=== PATIENT | female | born 1955 | race Caucasian/White ===

== ENCOUNTER → 2018-06-16 | Outpatient (CLI) | payer BC ==
--- NOTE | 2018-06-18 08:52 | MM ---
Reason for exam: screening (asymptomatic). Last mammogram was performed 3 years and 10 months ago. History: Patient is postmenopausal. Family history of breast cancer in mother. Took hormonal contraceptives for 30 years. Physical Findings: A clinical breast exam by your physician is recommended on an annual basis and results should be correlated with mammographic findings. MG 3D Screening Mammo W/Cad Bilateral CC and MLO view(s) were taken. Prior study comparison: August 04, 2014, right breast MG work up mamm w CAD RT. July 15, 2014, bilateral MG screening mammo w CAD. The breast tissue is heterogeneously dense. This may lower the sensitivity of mammography. No significant changes when compared with prior studies. ASSESSMENT: Negative, BI-RAD 1 RECOMMENDATION: Routine screening mammogram of both breasts in 1 year.
== END | disposition home or self-care (01) ==
LOC: RADMAMWWP 13:36
PROVIDERS: ATTEND Family Medicine
DX: Z12.31 Encounter for screening mammogram for malignant neoplasm of breast (principal); Z80.3 Family history of malignant neoplasm of breast
CPT/HCPCS: 77063; 77067

== ENCOUNTER 2018-10-11 13:48 | Inpatient (IN) | payer BC ==
[2018-10-11] MEDS ORDERED: ASPIRIN 81 MG PO STA (13:51)
[2018-10-11] MEDS ORDERED: NITROGLYCERIN OINT 1 INCH/GM PACKET TOPICAL STA (14:17)
--- NOTE | 2018-10-11 14:20 | ED ---
General Adult HPI - General Chief complaint: Chest Pain Stated complaint: Chest Pressure, High BP Time Seen by Provider: 10/11/18 13:51 Source: patient, RN notes reviewed Mode of arrival: ambulatory Limitations: no limitations - History of Present Illness Initial comments: Patient is a pleasant 63-year-old female presenting to the emergency department after being seen in the clinic. Patient woke up this morning with discomfort in her chest that was somewhat severe. Patient had associated nausea. Discomfort has improved is currently 4/10. Discomfort feels like pressure. There was some radiation to the neck earlier. No associated dyspnea or diaphoresis. Patient did have last cardiac workup around 1 year ago. Patient's blood pressure was hi this morning at approximately 2:30 systolic. Blood pressure was somewhat improved in the clinic prior to arrival. Patient has had recent change in blood pressure medications. Last blood pressure medication was Norvasc 5 mg taken last night. Patient does also feel stressed and is in the process of taking one of her Xanax. - Related Data Home Medications Medication Instructions Recorded Confirmed Atorvastatin [Lipitor] 20 mg PO MOWEFR 10/11/18 10/11/18 Dicyclomine [Bentyl] 10 mg PO TID 10/11/18 10/11/18 Levothyroxine Sodium [Synthroid] 88 mcg PO DAILY 10/11/18 10/11/18 Loratadine [Claritin] 10 mg PO DAILY 10/11/18 10/11/18 Montelukast Sodium [Singulair] 10 mg PO HS 10/11/18 10/11/18 amLODIPine [Norvasc] 5 mg PO HS 10/11/18 10/11/18 Allergies Allergy/AdvReac Type Severity Reaction Status Date / Time No Known Allergies Allergy Verified 10/11/18 14:18 Review of Systems ROS Statement: Those systems with pertinent positive or pertinent negative responses have been documented in the HPI. ROS Other: All systems not noted in ROS Statement are negative. Constitutional: Denies: fever Eyes: Denies: eye pain ENT: Denies: ear pain Respiratory: Denies: cough, dyspnea Cardiovascular: Reports: chest pain Endocrine: Denies: fatigue Gastrointestinal: Reports: nausea. Denies: abdominal pain Genitourinary: Denies: dysuria Musculoskeletal: Denies: back pain Skin: Denies: rash Neurological: Denies: weakness Past Medical History Past Medical History: Asthma, Hyperlipidemia, Hypertension, Thyroid Disorder History of Any Multi-Drug Resistant Organisms: None Reported Past Surgical History: Hysterectomy, Tonsillectomy Past Psychological History: No Psychological Hx Reported Smoking Status: Current every day smoker Past Alcohol Use History: Occasional Past Drug Use History: None Reported General Exam Limitations: no limitations General appearance: alert, in no apparent distress Head exam: Present: atraumatic Eye exam: Present: normal appearance, PERRL ENT exam: Present: normal oropharynx Neck exam: Present: normal inspection Respiratory exam: Present: normal lung sounds bilaterally. Absent: chest wall tenderness Cardiovascular Exam: Present: regular rate, normal rhythm Expanded Peripheral pulses: 2+: Radial (R), Radial (L), Posterior Tibialis (R), Posterior Tibialis (L) GI/Abdominal exam: Present: soft. Absent: distended, tenderness Extremities exam: Present: normal inspection. Absent: pedal edema, calf tenderness Neurological exam: Present: alert Psychiatric exam: Present: normal affect, normal mood Skin exam: Present: normal color Course Vital Signs 10/11/18 13:51 Temperature 99 F Pulse Rate 105 H Respiratory 20 Rate Blood Pressure 154/94 O2 Sat by Pulse 97 Oximetry EKG Findings - EKG Comments: EKG Findings:: Normal sinus rhythm and 96. ND 140. QRS 70. QT is a 48. QTC 439. Normal axis. Normal QRS. Nonspecific ST-T. Medical Decision Making - Medical Decision Making Patient reevaluated and resting comfortably in bed. Discomfort only mild at this point. Patient and family updated on results and plan. Case was discussed in detail with Dr. Alvarez, who will admit covering for [facility]. - Lab Data Result diagrams: 10/11/18 14:28 10/11/18 14:28 Lab Results 10/11/18 10/11/18 10/11/18 Range/Units 14:28 14:28 14:28 WBC 6.7 (3.8-10.6) k/uL RBC 5.50 H (3.80-5.40) m/uL Hgb 16.3 H (11.4-16.0) gm/dL Hct 48.6 H (34.0-46.0) % MCV 88.5 (80.0-100.0) fL MCH 29.7 (25.0-35.0) pg MCHC 33.6 (31.0-37.0) g/dL RDW 13.4 (11.5-15.5) % Plt Count 349 (150-450) k/uL Neutrophils % 59 % Lymphocytes % 31 % Monocytes % 5 % Eosinophils % 2 % Basophils % 1 % Neutrophils # 4.0 (1.3-7.7) k/uL Lymphocytes # 2.1 (1.0-4.8) k/uL Monocytes # 0.3 (0-1.0) k/uL Eosinophils # 0.2 (0-0.7) k/uL Basophils # 0.1 (0-0.2) k/uL PT 9.8 (9.0-12.0) sec INR 0.9 (<1.2) APTT 24.8 (22.0-30.0) sec D-Dimer 0.50 (<0.60) mg/L FEU Sodium 137 (137-145) mmol/L Potassium 3.6 (3.5-5.1) mmol/L Chloride 104 (98-107) mmol/L Carbon Dioxide 25 (22-30) mmol/L Anion Gap 8 mmol/L BUN 13 (7-17) mg/dL Creatinine 0.81 (0.52-1.04) mg/dL Est GFR (CKD-EPI)AfAm 89 (>60 ml/min/1.73 sqM) Est GFR (CKD-EPI)NonAf 78 (>60 ml/min/1.73 sqM) Glucose 147 H (74-99) mg/dL Calcium 9.6 (8.4-10.2) mg/dL Magnesium 1.7 (1.6-2.3) mg/dL Total Bilirubin 0.6 (0.2-1.3) mg/dL AST 21 (14-36) U/L ALT 19 (9-52) U/L Alkaline Phosphatase 68 (38-126) U/L Creatine Kinase 143 H (30-135) U/L Troponin I (0.000-0.034) ng/mL Total Protein 6.9 (6.3-8.2) g/dL Albumin 4.5 (3.5-5.0) g/dL 10/11/18 Range/Units 14:28 WBC (3.8-10.6) k/uL RBC (3.80-5.40) m/uL Hgb (11.4-16.0) gm/dL Hct (34.0-46.0) % MCV (80.0-100.0) fL MCH (25.0-35.0) pg MCHC (31.0-37.0) g/dL RDW (11.5-15.5) % Plt Count (150-450) k/uL Neutrophils % % Lymphocytes % % Monocytes % % Eosinophils % % Basophils % % Neutrophils # (1.3-7.7) k/uL Lymphocytes # (1.0-4.8) k/uL Monocytes # (0-1.0) k/uL Eosinophils # (0-0.7) k/uL Basophils # (0-0.2) k/uL PT (9.0-12.0) sec INR (<1.2) APTT (22.0-30.0) sec D-Dimer (<0.60) mg/L FEU Sodium (137-145) mmol/L Potassium (3.5-5.1) mmol/L Chloride (98-107) mmol/L Carbon Dioxide (22-30) mmol/L Anion Gap mmol/L BUN (7-17) mg/dL Creatinine (0.52-1.04) mg/dL Est GFR (CKD-EPI)AfAm (>60 ml/min/1.73 sqM) Est GFR (CKD-EPI)NonAf (>60 ml/min/1.73 sqM) Glucose (74-99) mg/dL Calcium (8.4-10.2) mg/dL Magnesium (1.6-2.3) mg/dL Total Bilirubin (0.2-1.3) mg/dL AST (14-36) U/L ALT (9-52) U/L Alkaline Phosphatase (38-126) U/L Creatine Kinase (30-135) U/L Troponin I <0.012 (0.000-0.034) ng/mL Total Protein (6.3-8.2) g/dL Albumin (3.5-5.0) g/dL - Radiology Data Radiology results: image reviewed (Chest x-ray reveals no acute process) Disposition Clinical Impression: Chest pain Disposition: ADMITTED IP TO THIS HOSP Is patient prescribed a controlled substance at d/c from ED?: No Referrals: Juana Russell DO [Primary Care Provider] - 1-2 days Decision Time: 16:33
--- NOTE | 2018-10-11 14:41 | XR ---
EXAMINATION TYPE: XR chest 2V DATE OF EXAM: 10/11/2018 COMPARISON: NONE HISTORY: Chest pain. TECHNIQUE: Frontal and lateral views of the chest are obtained. FINDINGS: There is chronic parenchymal change with mild to moderate biapical pleural/parenchymal scar ring. Overlying EKG leads are seen. There is no focal air space opacity, pleural effusion, or pneumot horax seen. The cardiac silhouette size is within normal limits. The osseous structures are intact . IMPRESSION: Chronic changes without acute pulmonary process.
[2018-10-11 14:49] LABS: Basophils # (A) 0.1 k/uL (0-0.2); Basophils % (A) 1 %; Eosinophils # (A) 0.2 k/uL (0-0.7); Eosinophils % (A) 2 %; HCT 48.6 % (34.0-46.0); HGB 16.3 gm/dL (11.4-16.0); Lymphocytes # (A) 2.1 k/uL (1.0-4.8); Lymphocytes % (A) 31 %; MCH 29.7 pg (25.0-35.0); MCHC 33.6 g/dL (31.0-37.0); MCV 88.5 fL (80.0-100.0); Monocytes # (A) 0.3 k/uL (0-1.0); Monocytes % (A) 5 %; Neutrophils % (A) 59 %; Platelet Count 349 k/uL (150-450); RDW 13.4 % (11.5-15.5); WBC 6.7 k/uL (3.8-10.6)
[2018-10-11 14:57] LABS: Albumin 4.5 g/dL (3.5-5.0); Calcium 9.6 mg/dL (8.4-10.2); Magnesium 1.7 mg/dL (1.6-2.3); Potassium 3.6 mmol/L (3.5-5.1); Total Bilirubin 0.6 mg/dL (0.2-1.3); Total Protein 6.9 g/dL (6.3-8.2)
[2018-10-11 15:00] LABS: D-Dimer 0.5 mg/L FEU (<0.60); INR 0.9 (<1.2); Partial Thromboplastin Time 24.8 sec (22.0-30.0); Prothrombin Time 9.8 sec (9.0-12.0)
[2018-10-11] MEDS ORDERED: MORPHINE SULFATE 2 MG/ML SYRINGE IVP STA (16:32)
[2018-10-11] MEDS ORDERED: NITROGLYCERIN SL TABS 0.4 MG TAB SUBLINGUAL PRN (16:33)
[2018-10-11] MEDS ORDERED: MONTELUKAST 10 MG TAB PO SCH (21:00)
[2018-10-11] MEDS ORDERED: ATORVASTATIN 20 MG TAB PO SCH (21:00)
[2018-10-11] MEDS ORDERED: amLODIPine 5 MG TAB PO SCH (21:00)
[2018-10-11] MEDS: DICYCLOMINE 10 MG CAP PO SCH (22:23)
[2018-10-11] MEDS: NITROGLYCERIN OINT 1 INCH/GM PACKET TOPICAL SCH (22:31)
[2018-10-12 01:58] LABS: Cholesterol 225 mg/dL (<200); HDL Cholesterol 60 mg/dL (40-60); LDL Cholesterol,Calculated 131 mg/dL (0-99); Triglycerides 169 mg/dL (<150)
[2018-10-12] MEDS: NITROGLYCERIN OINT 1 INCH/GM PACKET TOPICAL SCH ×3 (02:13→11:27)
[2018-10-12] MEDS ORDERED: LEVOTHYROXINE 88 MCG TAB PO SCH (06:30)
[2018-10-12 07:47] VITALS: PULSE 64; RESP 18; TEMP 98.3
[2018-10-12 08:55] LABS: Basophils # (A) 0.1 k/uL (0-0.2); Basophils % (A) 1 %; Eosinophils # (A) 0.2 k/uL (0-0.7); Eosinophils % (A) 4 %; HGB 14.4 gm/dL (11.4-16.0); Lymphocytes # (A) 2.2 k/uL (1.0-4.8); Lymphocytes % (A) 37 %; MCH 29.5 pg (25.0-35.0); MCHC 32.8 g/dL (31.0-37.0); MCV 89.9 fL (80.0-100.0); Mean Platelet Volume 7.2; Monocytes # (A) 0.3 k/uL (0-1.0); Monocytes % (A) 5 %; Neutrophils % (A) 52 %; Platelet Count 288 k/uL (150-450); RBC 4.89 m/uL (3.80-5.40); RDW 13.6 % (11.5-15.5); WBC 5.9 k/uL (3.8-10.6)
[2018-10-12] MEDS ORDERED: LORATADINE 10 MG TAB PO SCH (09:00)
[2018-10-12] MEDS ORDERED: ASPIRIN 325 MG TAB PO SCH (09:00)
[2018-10-12 09:10] LABS: ALT 24 U/L (9-52); AST 16 U/L (14-36); Albumin 3.7 g/dL (3.5-5.0); Alkaline Phosphatase 59 U/L (38-126); Anion Gap 6 mmol/L; Blood Urea Nitrogen 17 mg/dL (7-17); Calcium 9.1 mg/dL (8.4-10.2); Carbon Dioxide 26 mmol/L (22-30); Chloride 107 mmol/L (98-107); Glucose 110 mg/dL (74-99); Sodium 139 mmol/L (137-145); Total Bilirubin 0.6 mg/dL (0.2-1.3)
[2018-10-12] MEDS ORDERED: ALPRAZolam 0.5 MG TAB PO PRN (09:14)
[2018-10-12] MEDS ORDERED: ALPRAZolam 0.25 MG TAB PO PRN (09:14)
[2018-10-12] MEDS ORDERED: SODIUM CHLORIDE 0.9% 1,000 ML in EMPTY BAG 1 BAG IV ONE (09:14)
[2018-10-12] MEDS ORDERED: ATORVASTATIN 80 MG TAB PO STA (09:14)
[2018-10-12] MEDS: DICYCLOMINE 10 MG CAP PO SCH (09:36)
--- NOTE | 2018-10-12 09:59 | P.HPIM ---
History of Present Illness H&P Date: 10/12/18 This is a 63-year-old female patient of Dr. Russell. Patient presented to the ER with complaints of chest pain. Patient reports that she woke up around 7:30 yesterday morning with pain to neck and jaw. Patient also reports that she took her blood pressure was 230s. Patient also reports that this time she was nauseated. Patient does have past medical history of asthma, hyperlipidemia, hypertension, thyroid disorder and nicotine dependence. Patient reports she's had a smoking history of 52+ years 1 pack per day. Chest x-ray completed showing chronic changes without acute pulmonary process. EKG completed showing normal sinus rhythm, nonspecific ST and T-wave abnormality. Abnormal EKG. D- dimer 0.50. Cardiology services have been consulted. At this time planning heart catheterization today. At this time patient denies chest pain or shortness of breath. Patient denies nausea vomiting or diarrhea. Patient denies any urinary burning or frequency. Review of Systems please refer to HPI otherwise unremarkable Past Medical History Past Medical History: Asthma, Hyperlipidemia, Hypertension, Thyroid Disorder History of Any Multi-Drug Resistant Organisms: None Reported Past Surgical History: Hysterectomy, Tonsillectomy Past Anesthesia/Blood Transfusion Reactions: No Reported Reaction Past Psychological History: No Psychological Hx Reported Smoking Status: Current every day smoker Past Alcohol Use History: Occasional Past Drug Use History: None Reported Medications and Allergies Home Medications Medication Instructions Recorded Confirmed Type Atorvastatin [Lipitor] 20 mg PO MOWEFR 10/11/18 10/11/18 History Dicyclomine [Bentyl] 10 mg PO TID 10/11/18 10/11/18 History Levothyroxine Sodium [Synthroid] 88 mcg PO DAILY 10/11/18 10/11/18 History Loratadine [Claritin] 10 mg PO DAILY 10/11/18 10/11/18 History Montelukast Sodium [Singulair] 10 mg PO HS 10/11/18 10/11/18 History amLODIPine [Norvasc] 5 mg PO HS 10/11/18 10/11/18 History Allergies Allergy/AdvReac Type Severity Reaction Status Date / Time No Known Allergies Allergy Verified 10/11/18 14:18 Physical Exam Vitals: Vital Signs Temp Pulse Pulse Resp BP BP Pulse Ox 10/12/18 08:00 18 10/12/18 07:47 98.3 F 64 18 143/91 96 04/02/19 07:26 98 10/12/18 04:00 97.8 F 67 16 118/48 98 10/12/18 03:20 16 10/12/18 00:41 98.3 F 71 16 136/62 95 10/12/18 00:13 98.9 F 74 18 156/94 95 10/12/18 00:00 71 16 10/11/18 22:00 79 20 134/90 99 10/11/18 18:37 85 18 123/84 99 10/11/18 16:40 81 19 136/92 96 10/11/18 13:51 99 F 105 H 20 154/94 97 Intake and Output 10/11/18 10/12/18 10/12/18 22:59 06:59 14:59 Intake Total 180 Balance 180 Intake: Amount of Fluid Infused ( 30 ml) Oral 150 Other: Voiding Method Toilet # Voids 1 Head normocephalic Neck supple Lungs clear to auscultation bilaterally no wheezing or crackles Heart regular rate and rhythm S1-S2, no rub or gallop Abdomen is soft nontender nondistended positive bowel sounds no hep atosplenomegaly Extremities no edema Neuro alert and orientated to 3 Results CBC & Chem 7: 10/12/18 08:36 10/12/18 08:36 Labs: Abnormal Lab Results - Last 24 Hours (Table) 10/11/18 10/11/18 10/11/18 Range/Units 14:28 14:28 14:28 RBC 5.50 H (3.80-5.40) m/uL Hgb 16.3 H (11.4-16.0) gm/dL Hct 48.6 H (34.0-46.0) % Glucose 147 H (74-99) mg/dL Creatine Kinase 143 H (30-135) U/L Total Protein (6.3-8.2) g/dL Triglycerides 169 H (<150) mg/dL Cholesterol 225 H (<200) mg/dL LDL Cholesterol, Calc 131 H (0-99) mg/dL 10/12/18 Range/Units 08:36 RBC (3.80-5.40) m/uL Hgb (11.4-16.0) gm/dL Hct (34.0-46.0) % Glucose 110 H (74-99) mg/dL Creatine Kinase (30-135) U/L Total Protein 6.0 L (6.3-8.2) g/dL Triglycerides (<150) mg/dL Cholesterol (<200) mg/dL LDL Cholesterol, Calc (0-99) mg/dL Thrombosis Risk Factor Assmnt - Choose All That Apply Any of the Below Risk Factors Present?: Yes Each Factor Represents 1 point: Varicose veins Other Risk Factors: Yes Each Risk Factor Represents 2 Points: Age 61-74 years Other congenital or acquired thrombophilia - If yes, enter type in comment: No Thrombosis Risk Factor Assessment Total Risk Factor Score: 3 Thrombosis Risk Factor Assessment Level: Moderate Risk Assessment and Plan Assessment: 1. Chest pain. Troponins negative 3. EKG completed showing normal sinus rhythm, nonspecific ST and T-wave abnormality. Abnormal EKG. Chest x-ray completed showing chronic changes without acute pulmonary process. Cardiology services following. Planning a heart catheterization today. 2. Nicotine dependence. Patient educated greater than 3 minutes on smoking cessation. Nicotine patch ordered 3. History of asthma. No exacerbation at this time 4. History of hyperlipidemia. 5. History of essential hypertension 6. Hypothyroidism Time with Patient: Greater than 30 (Greater than 60% of the total time spent in counseling and coordination of care. I performed an examination of the patient and discussed their management with the Nurse Practitioner. I have reviewed the Nurse Practitioner's notes and agree with the documented findings and plan of care)
--- NOTE | 2018-10-12 10:00 | P.CRDCN ---
History of Present Illness History of present illness: This is a pleasant 63 female past medical history significant for hypertension, dyslipidemia, diabetes mellitus recently stopped her oral medications secondary to controlled A1c, chronic nicotine dependence and significant family history of premature coronary artery disease with her father dying from a heart attack in his early 60s. She states she underwent a cardiac evaluation by her primary care physician approximately one year ago with a stress test which was normal. 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 She states yesterday morning around 7 AM she woke up with a heavy pressure sensation in the left precordial region that was radiating to the left shoulder, up her neck on the left side as well as at the base of her neck and also she was having a significant headache. She checked her blood pressure home it was over 200 systolic. She also had associated nausea with this pain. She denies shortness of breath, dizziness, vomiting, diaphoresis or palpitations. She states she went to her primary care physician performed an EKG and sent her to the hospital for further evaluation. She states in the recent months she has been struggling with getting her blood pressure under control. She has tried multiple medications. She had been on losartan previously but requested to stop that medication secondary to things that she was reading on [facility]. She is currently maintained on amlodipine 5 mg daily. At the time of my exam initially she is seen sitting in bed in no acute distress. However further course of my examination she got up to use the restroom and while walking to the restroom she had another episode of chest discomfort with radiation to the left shoulder and neck. This pain is not reproducible on palpation and is not associated with deep inspiration. EKG reveals sinus mechanism with upsloping ST depression in the inferior leads and horizontal ST depression laterally. Chest x-ray is negative for an acute cardiopulmonary process. Laboratory data reviewed, cardiac enzymes negative 3, LDL 131, creatinine 0.78 with a GFR of 81. Current cardiac medications include atorvastatin 20 mg Thursday and Thursday and amlodipine 5 mg daily. At the time of my exam: CONSTITUTIONAL: Denies fever. Denies chills. EYES: Denies blurred vision. Denies vision changes. Denies eye pain. EARS, NOSE, MOUTH & THROAT: Denies headache. Denies sore throat. Denies ear pain. CARDIOVASCULAR: Complains of chest pain. Denies shortness of breath. Denies orthopnea. Denies PND. Denies palpitations. RESPIRATORY: Denies cough. GASTROINTESTINAL: Denies abdominal pain. Denies diarrhea. Denies constipation. Denies nausea. Denies vomiting. MUSCULOSKELETAL: Denies myalgias. INTEGUMENTARY: Denies pruitis. Denies rash. NEUROLOGIC: Denies numbness. Denies tingling. Denies weakness. PSYCHIATRIC: Denies anxiety. Denies depression. ENDOCRINE: Denies fatigue. Denies weight change. Denies polydipsia. Denies polyurina. GENITOURINARY: Denies burning, hematuria or urgency with micturation. HEMATOLOGIC: Denies history of anemia. Denies bleeding. Blood pressure 143/91 heart rate 64 afebrile maintaining oxygen saturation on room air GENERAL: This is a 63-year-old female in no apparent distress at the time of my examination. HEENT: Head is atraumatic, normocephalic. Pupils are equal, round. Sclerae anicteric. Conjunctivae are clear. Mucous membranes of the mouth are moist. Neck is supple. There is no jugular venous distention. No carotid bruit is heard. LUNGS: Clear to auscultation no wheezes, rales or rhonchi. No chest wall tender ness is noted on palpation or with deep breathing. Diminished bilaterally. HEART: Regular rate and rhythm without murmurs, rubs or gallops. S1 and S2 heard. ABDOMEN: Soft, nontender. Bowel sounds are heard. No organomegaly noted. EXTREMITIES: No evidence of peripheral edema and no calf tenderness noted. VASCULAR: Radial and dorsalis pedis pulses palpated, no evidence of clubbing. NEUROLOGIC: Patient is awake, alert and oriented x3. ASSESSMENT Unstable angina with EKG abnormalities. No old EKG for comparison. Hypertension Dyslipidemia Diabetes mellitus Chronic nicotine dependence Family history for premature coronary artery disease PLAN Due to her multiple risk factors as well as EKG abnormalities and symptoms suggestive of unstable angina we recommend proceeding with cardiac cathete rization. I have discussed the risks, benefits and alternative therapies for the above-mentioned procedure and for both sedation/analgesia as well as necessary blood product administration, if indicated, as they pertain to this patient. The patient has indicated understanding and acceptance of the risks and procedures discussed. Questions have been answered appropriately and she is agreeable to move forward with the above-stated procedure. Obtain 2-D echocardiogram and Doppler study to assess cardiac structure and function. Further recommendations to follow based upon clinical course. Thank you kindly for this consultation. Nurse Practitioner note has been reviewed, I agree with a documented findings and plan of care. Patient was seen and examined. Past Medical History Past Medical History: Asthma, Hyperlipidemia, Hypertension, Thyroid Disorder History of Any Multi-Drug Resistant Organisms: None Reported Past Surgical History: Hysterectomy, Tonsillectomy Past Anesthesia/Blood Transfusion Reactions: No Reported Reaction Past Psychological History: No Psychological Hx Reported Smoking Status: Current every day smoker Past Alcohol Use History: Occasional Past Drug Use History: None Reported Medications and Allergies Home Medications Medication Instructions Recorded Confirmed Type Atorvastatin [Lipitor] 20 mg PO MOWEFR 10/11/18 10/11/18 History Dicyclomine [Bentyl] 10 mg PO TID 10/11/18 10/11/18 History Levothyroxine Sodium [Synthroid] 88 mcg PO DAILY 10/11/18 10/11/18 History Loratadine [Claritin] 10 mg PO DAILY 10/11/18 10/11/18 History Montelukast Sodium [Singulair] 10 mg PO HS 10/11/18 10/11/18 History amLODIPine [Norvasc] 5 mg PO HS 10/11/18 10/11/18 History Allergies Allergy/AdvReac Type Severity Reaction Status Date / Time No Known Allergies Allergy Verified 10/11/18 14:18 Physical Exam Vitals: Vital Signs Temp Pulse Pulse Resp BP BP Pulse Ox 10/12/18 07:47 98.3 F 64 18 143/91 96 10/12/18 07:26 98 10/12/18 04:00 97.8 F 67 16 118/48 98 10/12/18 03:20 16 10/12/18 00:41 98.3 F 71 16 136/62 95 10/12/18 00:13 98.9 F 74 18 156/94 95 10/12/18 00:00 71 16 10/11/18 22:00 79 20 134/90 99 10/11/18 18:37 85 18 123/84 99 10/11/18 16:40 81 19 136/92 96 10/11/18 13:51 99 F 105 H 20 154/94 97 Intake and Output 10/11/18 10/12/18 10/12/18 22:59 06:59 14:59 Intake Total 180 Balance 180 Intake: Amount of Fluid Infused ( 30 ml) Oral 150 Other: # Voids 1 Results 10/12/18 08:36 10/12/18 08:36 Cardiac Enzymes 10/11/18 10/11/18 10/11/18 Range/Units 14:28 14:28 20:59 AST 21 (14-36) U/L Troponin I <0.012 <0.012 (0.000-0.034) ng/mL 10/12/18 Range/Units 02:28 AST (14-36) U/L Troponin I <0.012 (0.000-0.034) ng/mL Coagulation 10/11/18 Range/Units 14:28 PT 9.8 (9.0-12.0) sec APTT 24.8 (22.0-30.0) sec Lipids 10/11/18 Range/Units 14:28 Triglycerides 169 H (<150) mg/dL Cholesterol 225 H (<200) mg/dL HDL Cholesterol 60 (40-60) mg/dL CBC 10/11/18 Range/Units 14:28 WBC 6.7 (3.8-10.6) k/uL RBC 5.50 H (3.80-5.40) m/uL Hgb 16.3 H (11.4-16.0) gm/dL Hct 48.6 H (34.0-46.0) % Plt Count 349 (150-450) k/uL Comprehensive Metabolic Panel 10/11/18 Range/Units 14:28 Sodium 137 (137-145) mmol/L Potassium 3.6 (3.5-5.1) mmol/L Chloride 104 (98-107) mmol/L Carbon Dioxide 25 (22-30) mmol/L BUN 13 (7-17) mg/dL Creatinine 0.81 (0.52-1.04) mg/dL Glucose 147 H (74-99) mg/dL Calcium 9.6 (8.4-10.2) mg/dL AST 21 (14-36) U/L ALT 19 (9-52) U/L Alkaline Phosphatase 68 (38-126) U/L Total Protein 6.9 (6.3-8.2) g/dL Albumin 4.5 (3.5-5.0) g/dL Current Medications Generic Name Dose Route Start Last Admin Trade Name Freq PRN Reason Stop Dose Admin Amlodipine Besylate 5 mg 10/11/18 21:00 10/11/18 22:23 Norvasc PO 5 mg HS THAI Administration Aspirin 325 mg 10/12/18 09:00 Aspirin PO DAILY [facility] Atorvastatin Calcium 20 mg 10/11/18 21:00 10/11/18 22:23 Lipitor PO 20 mg MOWEFR THAI Administration Dicyclomine HCl 10 mg 10/11/18 22:00 10/11/18 22:23 Bentyl PO 10 mg TID [facility] Administration Levothyroxine Sodium 88 mcg 10/12/18 06:30 10/12/18 05:39 Synthroid PO 88 mcg DAILY@0630 THAI Administration Loratadine 10 mg 10/12/18 09:00 Claritin PO DAILY THAI Montelukast Sodium 10 mg 10/11/18 21:00 10/11/18 22:23 Singulair PO 10 mg HS THAI Administration Nitroglycerin 1 inch 10/11/18 18:00 10/12/18 05:39 Nitro-Bid Oint TOPICAL 1 inch Q6HR [facility] Administration Nitroglycerin 0.4 mg 10/11/18 16:33 Nitrostat SUBLINGUAL Q5M PRN Chest Pain Sodium Chloride 10 ml 10/11/18 21:00 10/11/18 22:27 Saline Flush IV 10 ml BID THAI Administration Intake and Output 10/11/18 10/12/18 10/12/18 22:59 06:59 14:59 Intake Total 180 Balance 180 Intake: Amount of Fluid Infused ( 30 ml) Oral 150 Other: # Voids 1 10/11/18 14:28 10/11/18 14:28
[2018-10-12] MEDS ORDERED: LIDOCAINE 1% INJ 10MG/ML (20 ML MDV) ONE (10:03)
[2018-10-12] MEDS ORDERED: HEPARIN SODIUM 1,000 UN/ML (10ML VL) ONE (10:03)
[2018-10-12] MEDS ORDERED: VERAPAMIL 2.5 MG/ML 2 ML AMP ONE (10:04)
[2018-10-12] MEDS ORDERED: fentaNYL (PF) 50 MCG/ML 2 ML AMP ONE (10:37)
[2018-10-12] MEDS ORDERED: fentaNYL (PF) 50 MCG/ML 2 ML AMP IV ONE (10:45)
[2018-10-12] MEDS ORDERED: MIDAZOLAM 2 MG/2 ML VIAL IV ONE (10:45)
[2018-10-12] MEDS ORDERED: LIDOCAINE 1% INJ 10MG/ML (20 ML MDV) SQ ONE ×2 (10:45→10:47)
[2018-10-12] MEDS ORDERED: IV FLUID CONTINUATION 900 ML IV ONE (10:46)
[2018-10-12] MEDS: VERAPAMIL SYRINGE (5 MG/10 ML) INTRAARTER ONE ×2 (10:50→10:59)
[2018-10-12] MEDS ORDERED: HEPARIN SODIUM 1,000 UN/ML (10ML VL) IV ONE (10:52)
[2018-10-12] MEDS ORDERED: RX INFO: IV CONTRAST WAS GIVEN 1 EACH MISC MISCELLANE PRN (11:04)
--- NOTE | 2018-10-12 11:11 | P.PCN ---
Date of Procedure: 10/12/18 Preoperative Diagnosis: Chest pain, unstable angina Postoperative Diagnosis: Mild calcification and plaque without any critical lesions Description of Procedure: HISTORY: This is a 63-year-old female with history of hypertension and smoking who was admitted to the hospital with complaints of recurrent chest pains. EKGs and cardiac enzymes are negative. However because of multiple risk factors on the ongoing chest pain, patient was advised to have a cardiac catheterization or a stress test for further evaluation. Patient preferred to have cardiac catheterization CONSENT:I have discussed the risks, benefits and alternative therapies for the above-mentioned procedure and for both sedation/analgesia as well as necessary blood product administration, if indicated, as they pertain to this patient. The patient has indicated understanding and acceptance of the risks and procedures discussed. PROCEDURE: Patient was brought to the lab in a fasting state. Patient was given some IV sedation. The right wrist is infiltrated with lidocaine and right femoral artery was entered using Seldinger technique. A 6-Zambian catheter was left in place and selective coronary arteriography and left ventriculography was performed. Patient tolerated the procedure well. TR band was applied for hemostasis. No immediate complications were noted and patient was transferred to [facility] in a stable condition Conscious Sedation: Versed 1mg Fentanyl 25 g Duration 13minutes HEMODYNAMICS: The aortic pressure is about 130/70. Left ventricle end-diastolic pressure was about 5-8. There was no gradient across the aortic valve SELECTIVE CORONARY ARTERIOGRAPHY: LEFT MAIN: Normal length and patent THE LEFT ANTERIOR DESCENDING CORONARY ARTERY:. Mild calcification noted. This is a good caliber vessel giving rise to moderate caliber diagonal branch and septal branches. The LAD and its branches are free of any critical focal occlusive lesions THE LEFT CIRCUMFLEX AND IS CORONARY ARTERY: This is a moderate caliber vessel with mild plaque in the first OM branch. This seemed to be codominant vessel. There doesn't seem to be any critical lesion THE RIGHT CORONARY ARTERY:. This is a dominant vessel giving rise to good-sized PDA and PLV. Mild plaque and calcium noted in the midportion. No significant lesions LEFT VENTRICULOGRAPHY: Not performed FINAL IMPRESSION: Calcification and mild plaque in the coronary system without any critical lesions PLAN:. Continued risk factor modification and medical therapy PROGNOSIS:. Good
[2018-10-12] MEDS ORDERED: SODIUM CHLORIDE 0.9% 1,000 ML IV SCH (11:15)
[2018-10-12] MEDS ORDERED: VALSARTAN 160 MG TAB PO SCH (12:51)
--- NOTE | 2018-10-12 13:13 | ECHOF ---
Referral Reason:cp MEASUREMENTS -------- HEIGHT: 162.6 cm WEIGHT: 63.5 kg BP: 143/91 RVIDd: 2.8 cm (< 3.3) IVSd: 1.1 cm (0.6 - 1.1) LVIDd: 3.6 cm (3.9 - 5.3) LVPWd: 1.1 cm (0.6 - 1.1) IVSs: 1.2 cm LVIDs: 2.9 cm LVPWs: 1.3 cm LA Diam: 3.9 cm (2.7 - 3.8) LAESV Index (A-L): 13.69 ml/m MV EXCURSION: 21.866 mm (> 18.000) MV EF SLOPE: 58 mm/s (70 - 150) EPSS: 1.2 cm MV E Devaughn: 0.63 m/s MV DecT: 289 ms MV A Dveaughn: 1.05 m/s MV E/A Ratio: 0.60 RAP: 5.00 mmHg RVSP: 13.57 mmHg FINDINGS -------- Sinus rhythm. This was a technically adequate study. LV size, wall thickness and systolic function are normal, with an EF greater than 55%. The left jeanine tricular size is normal. The right ventricle is normal in size. The left atrial size is normal. The right atrial size is normal. There is mild aortic valve sclerosis. There is no evidence of aortic regurgitation. Mild mitral annular calcification present. Mild mitral regurgitation is present. Mild tricuspid regurgitation present. There is no evidence of pulmonary hypertension. The right v entricular systolic pressure, as measured by Doppler, is 13.57mmHg. There is no pulmonic regurgitation present. The aortic root size is normal. There is no pericardial effusion. CONCLUSIONS -------- 1. LV size, wall thickness and systolic function are normal, with an EF greater than 55%. 2. The left ventricular size is normal. 3. The right ventricle is normal in size. 4. The left atrial size is normal. 5. The right atrial size is normal. 6. There is mild aortic valve sclerosis. 7. Mild mitral annular calcification present. 8. Mild mitral regurgitation is present. 9. Mild tricuspid regurgitation present. 10. There is no evidence of pulmonary hypertension. 11. The right ventricular systolic pressure, as measured by Doppler, is 13.57mmHg. 12. There is no pulmonic regurgitation present. 13. The aortic root size is normal. 14. There is no pericardial effusion. MANAGER BOOK: Jyoti Ledesma RDCS
--- NOTE | 2018-10-12 13:32 | P.DS ---
Providers Date of admission: 10/12/18 10:21 Expected date of discharge: 10/12/18 Attending physician: Toi Alvarez Consults: 10/11/18 16:33 Consult Physician Urgent Consulting Provider: Foreign Miller Consult Reason/Comments: cp Do you want consulting provider notified?: Yes Primary care physician: Juana Russell [facility] Course: Discharge diagnosis 1. Chest pain. Troponins negative 3. EKG completed showing normal sinus rhythm, nonspecific ST and T-wave abnormality. Abnormal EKG. Chest x-ray completed showing chronic changes without acute pulmonary process. Patient underwent cardiac heart cath today. Findings show mild calcification plaque without any critical lesions. Patient has been cleared for discharge from cardiology standpoint 2. Nicotine dependence. Patient educated greater than 3 minutes on smoking cessation. Nicotine patch ordered 3. History of asthma. No exacerbation at this time 4. History of hyperlipidemia. 5. History of essential hypertension. Patient's blood pressure 140s to 150s. Patient remains on Norvasc. Valsartan also ordered. Patient to follow-up with her PCP for further management 6. Hypothyroidism Hospital course This is a 63-year-old female patient of Dr. Russell. Patient presented to the ER with complaints of chest pain. Patient reports that she woke up around 7:30 yesterday morning with pain to neck and jaw. Patient also reports that she took her blood pressure was 230s. Patient also reports that this time she was nauseated. Patient does have past medical history of asthma, hyperlipidemia, hypertension, thyroid disorder and nicotine dependence. Patient reports she's had a smoking history of 52+ years 1 pack per day. Chest x-ray completed showi ng chronic changes without acute pulmonary process. EKG completed showing normal sinus rhythm, nonspecific ST and T-wave abnormality. Abnormal EKG. D- dimer 0.50. Cardiology services have been consulted. At this time planning heart catheterization today. At this time patient denies chest pain or shortness of breath. Patient denies nausea vomiting or diarrhea. Patient denies any urinary burning or frequency. Patient underwent heart catheterization today showing mild calcification and plaque without any critical lesions. Patient has been cleared for discharge from cardiology standpoint. Valsartan has been added for blood pressure control. Patient advised to follow-up PCP for further management. I performed an examination of the patient and discussed their management with the Nurse Practitioner. I have reviewed the Nurse Practitioner's notes and agree with the documented findings and plan of care Patient Condition at Discharge: Stable Plan - Discharge Summary New Discharge Prescriptions: New Valsartan [Diovan] 160 mg PO DAILY 30 Days #30 tab Nicotine 14Mg/24Hr Patch [Habitrol] 1 patch TRANSDERM DAILY #30 patch Continue amLODIPine [Norvasc] 5 mg PO HS Montelukast Sodium [Singulair] 10 mg PO HS Loratadine [Claritin] 10 mg PO DAILY Atorvastatin [Lipitor] 20 mg PO MOWEFR Levothyroxine Sodium [Synthroid] 88 mcg PO DAILY Dicyclomine [Bentyl] 10 mg PO TID Discharge Medication List Atorvastatin [Lipitor] 20 mg PO MOWEFR 10/11/18 [History] Dicyclomine [Bentyl] 10 mg PO TID 10/11/18 [History] Levothyroxine Sodium [Synthroid] 88 mcg PO DAILY 10/11/18 [History] Loratadine [Claritin] 10 mg PO DAILY 10/11/18 [History] Montelukast Sodium [Singulair] 10 mg PO HS 10/11/18 [History] amLODIPine [Norvasc] 5 mg PO HS 10/11/18 [History] Nicotine 14Mg/24Hr Patch [Habitrol] 1 patch TRANSDERM DAILY #30 patch 10/12/18 [Rx] Valsartan [Diovan] 160 mg PO DAILY 30 Days #30 tab 10/12/18 [Rx] Follow up Appointment(s)/Referral(s): Juana Russell DO [Primary Care Provider] - 1-2 days Activity/Diet/Wound Care/Special Instructions: Activity as tolerated Diet heart healthy Discharge Disposition: HOME SELF-CARE
[2018-10-12 14:57] VITALS: BP 142/78
[2018-10-13] MEDS ORDERED: PANTOPRAZOLE 40 MG TABLET PO SCH (07:30)
[2018-10-13] MEDS ORDERED: NICOTINE 14MG/24HR PATCH TRANSDERM SCH (09:00)
== END 2018-10-12 15:52 | disposition home or self-care (01) | DRG 287 ==
LOC: EC 13:48 → 1SOBS 16:33 → OBSVTOIN 10-12 10:21
PROVIDERS: ADMIT Internal Medicine; ATTEND Internal Medicine
PROC: B2111ZZ Fluoroscopy of Multiple Coronary Arteries using Low Osmolar Contrast (ICD-10-PCS; 2018-10-12)
PROC: 4A023N7 Measurement of Cardiac Sampling and Pressure, Left Heart, Percutaneous Approach (ICD-10-PCS; principal; 2018-10-12 10:30)
DX: I25.119 Atherosclerotic heart disease of native coronary artery with unspecified angina pectoris (principal); I25.83 Coronary atherosclerosis due to lipid rich plaque; I25.84 Coronary atherosclerosis due to calcified coronary lesion; E03.9 Hypothyroidism, unspecified; I10 Essential (primary) hypertension; J45.909 Unspecified asthma, uncomplicated; E78.5 Hyperlipidemia, unspecified; E11.9 Type 2 diabetes mellitus without complications; R51 Headache; F17.210 Nicotine dependence, cigarettes, uncomplicated; Z71.6 Tobacco abuse counseling; Z90.710 Acquired absence of both cervix and uterus; Z79.890 Hormone replacement therapy; Z79.899 Other long term (current) drug therapy; Z82.49 Family history of ischemic heart disease and other diseases of the circulatory system
CPT/HCPCS: 36415; 71046; 80053; 80061; 82550; 83735; 84484; 85025; 85379; 85610; 85730; 93005; 93306; 93458; 94760; 96374; 99285

== ENCOUNTER → 2018-12-14 | Outpatient (CLI) | payer BC ==
--- NOTE | 2018-12-14 13:10 | CTL ---
EXAMINATION TYPE: CT Low Dose Lung DATE OF EXAM ORDERED: 12/14/2018 HISTORY: Personal history of tobacco abuse. Lung cancer screening CT DLP: 83.[address] CTDI: 2.4 mGy Automated exposure control for dose reduction was used. SCREENING VISIT: Initial COMPARISON: Chest x-ray dated 10/11/2018 TECHNIQUE: Low dose computed tomography scan was performed through the chest at 1 mm thick sections a nd reconstructed images in the coronal plane at [address] DIAGNOSTIC QUALITY: Satisfactory FINDINGS: LUNG NODULES: Present, detailed below: There is a solid 3 mm pulmonary nodule that is subpleural in the anterior right upper lobe on image 7 8. There is a questionable 3 mm pulmonary nodule that appears at the inferior aspect of 811 and could re late to scarring marked on series 4 image 88 and the right upper lobe. A flat pulmonary nodule measuring up to 4 mm on sagittal image 93 is seen within the right upper lobe measuring approximately 6 mm in greatest dimension. A 2 mm solid pulmonary nodule seen in the lateral left lower lobe on image 208. Subpleural scarring c ontiguous with the pleural surface is seen near the left lung apex marked on image 39. LUNGS: COPD: Severity: Moderate centrilobular and paraseptal Fibrosis: Severity: Biapical pleural parenchymal scarring. Subpleural reticulation is seen and can be seen in early fibrosis although no honeycombing is yet present. Lymph nodes: Nonenlarged RIGHT PLEURAL SPACE: Effusion: None Calcification: None Thickening: None Pneumothorax: None LEFT PLEURAL SPACE: Effusion: None Calcification: None Thickening: None Pneumothorax: None HEART: Heart Size: Nonenlarged Coronary calcification: Moderate Pericardial effusion: None OTHER FINDINGS: Upper abdomen: Very small hiatal hernia. Bony thorax: Mild multilevel degenerative change. Old healed fracture deformity of the sternal body. Supraclavicular region: No suspicious abnormality. IMPRESSION: Lung RADS 3-probably benign finding-nodules with a low likelihood of becoming a clinicall y active [id number] follow-up low dose CT is recommended given the size of 6 mm at the largest nodule. Moderate background paraseptal and centrilobular emphysematous change with findings that coul d represent early fibrosis. FOLLOW UP CT CHEST RECOMMENDATION: Low-dose chest CT recommended in [address] LUNG RAD: 3
== END ==
LOC: RADCTMAIN 12:02
PROVIDERS: ATTEND Family Medicine
DX: Z12.2 Encounter for screening for malignant neoplasm of respiratory organs (principal); F17.210 Nicotine dependence, cigarettes, uncomplicated

== ENCOUNTER → 2020-05-07 | Outpatient (CLI) | payer BC, MEDICARE ==
--- NOTE | 2020-05-09 10:29 | MM ---
Reason for exam: screening (asymptomatic). Last mammogram was performed 1 year and 11 months ago. History: Patient is postmenopausal. Family history of breast cancer in mother. Took hormonal contraceptives for 30 years. Physical Findings: A clinical breast exam by your physician is recommended on an annual basis and results should be correlated with mammographic findings. MG 3D Screening Mammo W/Cad Bilateral CC and MLO view(s) were taken. Prior study comparison: June 16, 2018, bilateral MG 3d screening mammo w/cad. August 04, 2014, right breast MG work up mamm w CAD RT. The breast tissue is heterogeneously dense. This may lower the sensitivity of mammography. There is no discrete abnormality. ASSESSMENT: Negative, BI-RAD 1 RECOMMENDATION: Routine screening mammogram of both breasts in 1 year.
== END | disposition home or self-care (01) ==
LOC: RADMAMWWP 13:11
PROVIDERS: ATTEND Nurse Practitioner Family
DX: Z12.31 Encounter for screening mammogram for malignant neoplasm of breast (principal); Z80.3 Family history of malignant neoplasm of breast
CPT/HCPCS: 77063; 77067

== ENCOUNTER → 2020-05-15 | Outpatient (CLI) | payer MEDICARE ==
--- NOTE | 2020-05-15 14:22 | CTL ---
EXAMINATION TYPE: CT Low Dose Lung DATE OF EXAM ORDERED: 05/15/2020 HISTORY: Personal history of tobacco use. Lung cancer screening CT DLP: 58.[address] CTDI: 1.7 mGy Automated exposure control for dose reduction was used. SCREENING VISIT: Yes COMPARISON: CT low dose lung screening 12/14/2018 TECHNIQUE: Low dose computed tomography scan was performed through the chest at 1 mm thick sections a nd reconstructed images in the coronal plane at [address] DIAGNOSTIC QUALITY: Satisfactory FINDINGS: LUNG NODULES: Present, detailed below: Right upper lobe 3 mm solid pulmonary nodule (4:79), unchanged. Right upper lobe 6 mm solid pulmonary nodule (4:117), unchanged. Questionable right upper lobe 3 mm pulmonary nodule versus scar (4:94), unchanged. Nodular scarring and left apical thickening appears unchanged. LUNGS: COPD: Severity: Moderate paraseptal and centrilobular Fibrosis: Severity: Moderate Lymph nodes: None Other findings: Bronchiectasis RIGHT PLEURAL SPACE: Effusion: None Calcification: None Thickening: Redemonstrated apical thickening Pneumothorax: None LEFT PLEURAL SPACE: Effusion: None Calcification: None Thickening: Redemonstrated apical thickening Pneumothorax: None HEART: Heart Size: Normal Coronary calcification: Moderate Pericardial effusion: None OTHER FINDINGS: Upper abdomen: None Bony thorax: Degenerative changes. Old healed fracture deformity of the sternum. Supraclavicular region: None IMPRESSION: 1. Unchanged pulmonary nodules and biapical pleural thickening/scarring versus 12/14/2018. 2. Moderate emphysema with early fibrotic changes. FOLLOW UP CT CHEST RECOMMENDATION: Low dose CT chest in [address] LUNG RAD: Lung-Rad 2 Benign Appearance or Behavior
== END | disposition home or self-care (01) ==
LOC: RADCTMAIN 10:23
PROVIDERS: ATTEND Nurse Practitioner Family
DX: Z12.2 Encounter for screening for malignant neoplasm of respiratory organs (principal); J43.9 Emphysema, unspecified; J84.10 Pulmonary fibrosis, unspecified; F17.200 Nicotine dependence, unspecified, uncomplicated

== ENCOUNTER → 2021-05-03 | Outpatient (CLI) | payer MEDICARE ==
--- NOTE | 2021-05-03 11:53 | MR ---
EXAMINATION TYPE: MR brain wo/w con DATE OF EXAM: 05/03/2021 11:29 AM COMPARISON: NONE HISTORY: Memory Loss CONTRAST: Patient received 5.5 mL intravenous Gadavist gadolinium contrast. Multiplanar and multispin-echo imaging of the brain was performed . Pre and post contrast enhanced i mages are obtained. The ventricles, basal cisterns and sulci overlying the cerebral convexities are mildly enlarged. There is evidence of mild periventricular white matter ischemic demyelination. Multiple focal areas of increased signal within the deep and periventricular white matter of both cer ebral hemispheres are nonspecific and differential diagnostic possibilities include demyelinating dis order, chronic small vessel ischemic change, sequela of chronic migraine headaches and Lyme's disease to name a few. Correlate clinically. No acute edema is seen on diffusion weighted imaging. There is no evidence for midline shift or mass effect. Acute intracranial hemorrhage or extra-axial collection is not evident. No enhancing lesions are seen. The paranasal sinuses and mastoid air cells are well-aerated. IMPRESSION: Age-related atrophic and chronic small vessel ischemic change. White matter changes noted with differ ential diagnosis discussed above. No acute intracranial process at this time. No enhancing lesions are seen.
== END | disposition home or self-care (01) ==
LOC: RADMRIMAIN 09:42
PROVIDERS: ATTEND Family Medicine
DX: I67.82 Cerebral ischemia (principal)
CPT/HCPCS: 70553; A9585

== ENCOUNTER → 2021-05-15 | Outpatient (CLI) | payer MEDICARE ==
--- NOTE | 2021-05-15 16:03 | NM ---
EXAMINATION TYPE: NM bone/joint limited DATE OF EXAM: 05/15/2021 COMPARISON: NONE HISTORY: 65-year-old female pelvic bone mass TECHNIQUE: After the intravenous administration of 23.3 mCi Tc 99m MDP. Images acquired 3 hours pos t injection. Multiple views of the pelvis are submitted. FINDINGS: Focal mild uptake at the greater trochanters may be seen with insertional gluteal tendinopathy. No fo jigna abnormal uptake is otherwise identified in the pelvis. IMPRESSION: No clear scintigraphic abnormality aside from possible insertional gluteal tendinopathy on both sides . This exam can be reviewed concurrently with any cross-sectional imaging if made available.
== END | disposition home or self-care (01) ==
LOC: RADNMMAIN 10:17
PROVIDERS: ATTEND Surgery
DX: M89.8X8 Other specified disorders of bone, other site (principal)
CPT/HCPCS: 78300; A9503

== ENCOUNTER → 2021-05-22 | Outpatient (CLI) | payer MEDICARE ==
--- NOTE | 2021-05-22 12:51 | CTL ---
EXAMINATION TYPE: CT Low Dose Lung DATE OF EXAM ORDERED: 05/22/2021 HISTORY: Z 87.891, personal history tobacco use. Lung cancer screening CT DLP: [address] CTDI: 1.87 mGy Automated exposure control for dose reduction was used. SCREENING VISIT: 3 COMPARISON: Previous dated 05/15/2020 TECHNIQUE: Low dose computed tomography scan was performed through the chest at 1 mm thick sections a nd reconstructed images in multiple planes at 1 mm and 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 Bony thorax: Stable Supraclavicular region: Unremarkable Other: IMPRESSION: Benign CT LUNG RAD AND CT CHEST RECOMMENDATION: Lung-Rad 2 Benign Appearance or Behavior: Continue annual sc reening with LDCT in 12 months. S Modifier (other clinically significant findings):
== END | disposition home or self-care (01) ==
LOC: RADCTMAIN 08:08
PROVIDERS: ATTEND Family Medicine
DX: Z12.2 Encounter for screening for malignant neoplasm of respiratory organs (principal); Z87.891 Personal history of nicotine dependence; R91.8 Other nonspecific abnormal finding of lung field
CPT/HCPCS: 71271

== ENCOUNTER → 2021-07-05 | Outpatient (CLI) | payer MEDICARE ==
--- NOTE | 2021-07-08 14:41 | MM ---
Reason for exam: screening (asymptomatic). Last mammogram was performed 1 year and 2 months ago. History: Patient is postmenopausal. Family history of breast cancer in mother. Took hormonal contraceptives for 30 years. Physical Findings: A clinical breast exam by your physician is recommended on an annual basis and results should be correlated with mammographic findings. MG 3D Screening Mammo W/Cad Bilateral CC and MLO view(s) were taken. Prior study comparison: May 07, 2020, bilateral MG 3d screening mammo w/cad. June 16, 2018, bilateral MG 3d screening mammo w/cad. The breast tissue is heterogeneously dense. This may lower the sensitivity of mammography. No significant changes when compared with prior studies. ASSESSMENT: Benign, BI-RAD 2 RECOMMENDATION: Routine screening mammogram of both breasts in 1 year.
== END | disposition home or self-care (01) ==
LOC: RADMAMWWP 08:34
PROVIDERS: ATTEND Family Medicine
DX: Z12.31 Encounter for screening mammogram for malignant neoplasm of breast (principal); Z80.3 Family history of malignant neoplasm of breast; Z78.0 Asymptomatic menopausal state
CPT/HCPCS: 77063; 77067

== ENCOUNTER → 2023-03-04 | Outpatient (CLI) | payer MEDICARE ==
--- NOTE | 2023-03-04 14:55 | CTL ---
EXAMINATION TYPE: CT Low Dose Lung DATE OF EXAM ORDERED: 03/04/2023 COMPARISON: 05/22/2021 HISTORY: . Low Dose CT Lung Screening CT DLP: [address] CTDI: 1.8 mGy IV CONTRAST USED: None. SCREENING VISIT: 4 COMPARISON: None. TECHNIQUE: Low dose computed tomography scan was performed through the chest at 1 millimeter thick se ctions and reconstructed images in the coronal plane at [address] DIAGNOSTIC QUALITY: Satisfactory FINDINGS: LUNG NODULES: Stable and unchanged. LUNGS: COPD: Severity: Stable Fibrosis: Severity: Stable Lymph nodes: None Other findings: None RIGHT PLEURAL SPACE: Effusion: None Calcification: None Thickening: None Pneumothorax: None LEFT PLEURAL SPACE: Effusion: None Calcification: None Thickening: None Pneumothorax: None HEART: Heart Size: Mildly enlarged Coronary calcification: Moderate Pericardial effusion: None OTHER FINDINGS: Upper abdomen: No significant abnormality Bony thorax: Degenerative changes Supraclavicular region: No significant abnormalityOther: No significant abnormalityI IMPRESSION: Benign FOLLOW UP CT CHEST RECOMMENDATION: Follow-up screening in one year CT LUNG RAD: CT LUNG RAD AND CT CHEST RECOMMENDATION: Lung-Rad 2 Benign Appearance or Behavior: Continue annual sc reening with LDCT in 12 months.
== END | disposition home or self-care (01) ==
LOC: RADCTMAIN 14:20
PROVIDERS: ATTEND Family Medicine
DX: Z12.2 Encounter for screening for malignant neoplasm of respiratory organs (principal); F17.210 Nicotine dependence, cigarettes, uncomplicated
CPT/HCPCS: 71271

== ENCOUNTER → 2023-03-04 | Outpatient (CLI) | payer MEDICARE ==
--- NOTE | 2023-03-04 23:21 | BD ---
EXAMINATION TYPE: Axial Bone Density DATE OF EXAM: 03/04/2023 CLINICAL HISTORY: 67 years old Female. ICD-10 CODE: M810 OSTEO Height: 5 ft 4 in Weight: 135 FRAX RISK QUESTIONS: Alcohol (3 or more units per day): no Family History (Parent hip fracture): yes Glucocorticoids (More than 3mos): no (Ex: prednisone, prednisolone, methylprednisolone, dexamethasone, and hydrocortisone). History of Fracture in Adulthood: yes Secondary Osteoporosis: 1. Type 1 Diabetes: no 2. Hyperthyroidism: no 3. Menopause before 45: no 4. Malnutrition: no 5. Chronic liver disease: no Rheumatoid Arthritis: no Current Tobacco Use: yes RISK FACTORS HISTORY OF: Surgery to Spine/Hip(right/left)/Wrist (right/left): no Family History of Osteoporosis: no Active: yes Diet low in dairy products/other sources of calcium: no Postmenopausal woman: yes Take estrogen and/or progesterone medications: no Lost more than 2 inches in height since high school: no Frequent falls: no Poor Health: good Hyperparathyroidism: no Adrenal Insufficiency: no MEDICATIONS: Thyroid Medications:yes Which medication: levothyroxine How Long: over 10 years Additional Medications: levothyroxine, xanax, losartan, bentyl, Atorvastatin, montelukast, inhaler f or copd ,actonel for one year Additional History: EXAM MEASUREMENTS: Bone mineral densitometry was performed using the [employer]item[employer] System. Bone mineral density as measured about the Lumbar spine is: ----- L1-L4(G/cm2): 1.317 T Score Values are as follows: ----- L1: 1.0 ----- L2: 1.2 ----- L3: 1.4 ----- L4: 0.9 ----- L1-L4: 1.1 Z Score Values are as follows: ----- L1: 2.7 ----- L2: 3.0 ----- L3: 3.2 ----- L4: 2.6 ----- L1-L4: 2.9 Bone mineral density has: increased 17.7 % since study of: 2009 Bone mineral density about the R hip (g/cm2): 0.706 Bone mineral density about the L hip (g/cm2): 0.814 T Score values are as follows: -----R Neck: -2.4 -----L Neck: -1.6 -----R Total: -2.1 -----L Total: -1.3 Z Score values are as follows: -----R Neck: -0.7 -----L Neck: 0.1 -----R Total: -0.6 -----L Total: 0.2 Bone mineral density has: decreased -10.8 % since study of: 2009 FRAX%s: The graph provided illustrates a 22.5 % chance for a major osteoporotic fx and a 8.0 % chance for the hips probability for fx in 10 years time. IMPRESSION: Osteopenia (T Score between -2.5 and -1). There is slightly increased risk of fracture and the patient may be considered for treatment. Re-Screen 2-5 years. NOTE: T-SCORE=SD OF THE YOUNG ADULT MEAN.
--- NOTE | 2023-03-05 08:29 | MM ---
Reason for Exam: Screening (asymptomatic). Last mammogram was performed 1 year(s) and 8 month(s) ago. Patient History: Menarche at age 11. First Full-Term at age 27. Hysterectomy at age 40. Postmenopausal. Patient used Hormonal Contraceptives for 30 years. Mother had breast cancer, age 55. Risk Values: Tere 5 year model risk: 3.4%. NCI Lifetime model risk: 10.7%. Prior Study Comparison: 06/16/2018 Bilateral Screening Mammogram, [facility]. 05/07/2020 Bilateral Screening Mammogram, [facility]. 07/05/2021 Bilateral Screening Mammogram, [facility]. Tissue Density: The breast tissue is heterogeneously dense. This may lower the sensitivity of mammography. Findings: Analyzed By CAD. There is no suspicious group of microcalcifications or new suspicious mass in either breast. Benign calcifications within both breasts. Overall Assessment: Benign, BI-RAD 2 Management: Screening Mammogram of both breasts in 1 year. A clinical breast exam by your physician is recommended on an annual basis and results should be correlated with mammographic findings. Note on Tere scores and lifetime risk: 1. A Tere score greater than 3% is considered moderate risk. If this is the case, consider specialist referral to assess eligibility for a risk reducing agent. If overall lifetime risk for the development of breast cancer is 20% or higher, the patient may qualify for future screening with alternating mammogram and breast MRI. Electronically signed and approved by: Josh Bruno D.O.
== END | disposition home or self-care (01) ==
LOC: RADMAMWWP 14:42
PROVIDERS: ATTEND Family Medicine
DX: Z12.31 Encounter for screening mammogram for malignant neoplasm of breast (principal); M81.0 Age-related osteoporosis without current pathological fracture; M85.89 Other specified disorders of bone density and structure, multiple sites; Z78.0 Asymptomatic menopausal state; Z80.3 Family history of malignant neoplasm of breast
CPT/HCPCS: 77063; 77067; 77080

== ENCOUNTER 2023-04-21 10:32 | Day surgery (SDC) | payer MEDICARE ==
[2023-04-15 09:58] VITALS: BMI 22.3
[~2023-04-21 10:32] MED LIST: LIDOCAINE 1% (10MG/ML) FOR IV START INTRADERMA PRN
[2023-04-21 11:41] VITALS: TEMP 97.5
[2023-04-21] MEDS: LACTATED RINGERS 1,000 ML IV SCH ×2 (11:42→12:20)
[2023-04-21] MEDS ORDERED: LIDOCAINE 1% INJ 10MG/ML (20 ML MDV) ONE (12:23)
[2023-04-21] MEDS ORDERED: PROPOFOL 10 MG/ML 20 ML VIAL IV ONE (12:23)
--- NOTE | 2023-04-21 12:28 | P.GSHP ---
History of Present Illness H&P Date: 04/21/23 Chief Complaint: Diverticulitis 59-year-old female here for colonoscopy. Patient describes episode of recurrent diverticulitis earlier this year. He was treated with antibiotics twice. Last colonoscopy 2020. We were unable to advance beyond the sigmoid and barium enema was done after that. That showed diverticulosis with tortuosity. Patient also with intermittent rectal bleeding and complaints of internal hemorrhoids. Patient had prior internal hemorrhoidal banding. She would like to have that performed again. Past Medical History Past Medical History: Asthma, COPD, Hyperlipidemia, Hypertension, Thyroid Disorder Additional Past Medical History / Comment(s): DIVERTICULITIS History of Any Multi-Drug Resistant Organisms: None Reported Past Surgical History: Hysterectomy, Tonsillectomy Additional Past Surgical History / Comment(s): COLONOSCOPY Past Anesthesia/Blood Transfusion Reactions: No Reported Reaction Smoking Status: Current every day smoker - Past Family History Mother Family Medical History: Deep Vein Thrombosis (DVT) Medications and Allergies Home Medications Medication Instructions Recorded Confirmed Type Atorvastatin [Lipitor] 20 mg PO DAILY 10/11/18 04/21/23 History Dicyclomine [Bentyl] 10 mg PO BID 10/11/18 04/21/23 History Loratadine [Claritin] 10 mg PO DAILY 10/11/18 04/21/23 History Montelukast Sodium [Singulair] 10 mg PO HS 10/11/18 04/21/23 History ALPRAZolam [Xanax] 0.5 mg PO BID PRN 04/15/23 04/21/23 History Levothyroxine Sodium 100 mcg PO DAILY 04/15/23 04/21/23 History Valsartan 320 mg PO DAILY 04/15/23 04/21/23 History Albuterol Inhaler [Ventolin Hfa 2 puff INHALATION Q4HR 04/21/23 04/21/23 History Inhaler] Allergies Allergy/AdvReac Type Severity Reaction Status Date / Time No Known Allergies Allergy Verified 04/21/23 11:32 Surgical - Exam Vital Signs Temp Pulse Resp BP Pulse Ox 97.5 F L 64 16 142/77 93 L 04/21/23 11:38 04/21/23 11:38 04/21/23 11:38 04/21/23 11:38 04/21/23 11:38 Physical exam: General: Well-developed, well-nourished HEENT: Normocephalic, sclerae nonicteric Abdomen: Nontender, nondistended Extremities: No edema Neuro: Alert and oriented Assessment and Plan (1) Diverticulitis Narrative/Plan: Will proceed with colonoscopy and possible hemorrhoidal banding. Risks of bleeding and infection reviewed. Current Visit: Yes Status: Acute Code(s): K57.92 - DVTRCLI OF INTEST, PART UNSP, W/O PERF OR ABSCESS W/O BLEED SNOMED Code(s): 435713342
--- NOTE | 2023-04-21 12:46 | P.PCN ---
Date of Procedure: 04/21/23 Procedure(s) Performed: PREOPERATIVE DIAGNOSIS: Diverticulitis, history of polyps, hemorrhoids POSTOPERATIVE DIAGNOSIS: Right-sided internal hemorrhoid, diverticulosis, tortuous colon PROCEDURE: Attempted colonoscopy, anoscopy with hemorrhoidal banding ANESTHESIA: MAC SURGEON: Yury Dunbar M.D. SPECIMENS: None ENDOSCOPIC PROCEDURE: The patient was placed on the endoscopy table in the left decubitus position. The Olympus colonoscope was inserted into the anus and passed under direct visualization to the mid sigmoid colon. Diverticulosis was noted. Significant tortuosity was seen. Both the adult and pediatric scopes were attempted. We were unable to advance beyond the tortuous sigmoid colon. The scope was withdrawn. There was mild erythema of the mucosa from the scope. The rectum appeared normal. The anoscope was inserted. The patient had a prominent internal hemorrhoid in the right posterior location. A single hemorrhoidal band was placed without difficulty. The patient was taken to the recovery room in stable condition per anesthesia guidelines. RECOMMENDATIONS: Resume diet. Patient may benefit from elective sigmoid resection given her recurrent diverticulitis. This would assist with future surveillance given the patient's history of polyps and inability to navigate bey ond the mid sigmoid colon.
[2023-04-21 13:07] VITALS: RESP 18
[2023-04-21 13:24] VITALS: BP 138/85; PULSE 75
== END 2023-04-21 13:40 | disposition home or self-care (01) ==
LOC: ORWHC2ENDO 10:32
PROVIDERS: ATTEND Surgery
DX: K57.30 Diverticulosis of large intestine without perforation or abscess without bleeding (principal); K64.8 Other hemorrhoids; K63.89 Other specified diseases of intestine; E78.5 Hyperlipidemia, unspecified; I10 Essential (primary) hypertension; J44.89 Other specified chronic obstructive pulmonary disease; E07.9 Disorder of thyroid, unspecified; F17.200 Nicotine dependence, unspecified, uncomplicated; Z87.19 Personal history of other diseases of the digestive system; Z86.010 Personal history of colon polyps; Z79.890 Hormone replacement therapy
CPT/HCPCS: 45330; 46221; J2001; J2704; 45398

== ENCOUNTER → 2023-07-02 | Outpatient (CLI) | payer MEDICARE ==
--- NOTE | 2023-07-02 15:35 | CT ---
EXAMINATION TYPE: CT chest wo con DATE OF EXAM: 07/02/2023 COMPARISON: 03/04/2023. HISTORY: Swelling to right anterior superior thoracic region the clavicular area for [address] DLP: 220.8 mGycm. Automated Exposure Control for Dose Reduction was Utilized. TECHNIQUE: CT scan of the thorax is performed without IV contrast. FINDINGS: Mediastinum and Naomi: There is no axillary, mediastinal or hilar lymphadenopathy. Pleural and Pericardial spaces: There are no pleural or pericardial effusions. Upper Abdomen: The visualized upper abdomen is unremarkable. Cardiovascular: There is mild vascular calcification within the thoracic aorta without evidence of an eurysmal dilation. There are severe diffuse coronary artery calcifications. Lung Parenchyma and Airways: There is moderate diffuse centrilobular emphysema which is more signific ant in the upper lobes. There are no significant pulmonary nodules and no focal area of consolidation . Bones: No fracture or aggressive osseous lesion. Other: There is no significant soft tissue swelling in the right anterior supraclavicular region. IMPRESSION: 1. No acute abnormality in the chest. 2. Moderate emphysema. 3. Severe coronary artery calcification.
== END | disposition home or self-care (01) ==
LOC: RADCTMAIN 14:47
PROVIDERS: ATTEND Family Medicine
DX: J43.9 Emphysema, unspecified (principal); I25.10 Atherosclerotic heart disease of native coronary artery without angina pectoris; R22.2 Localized swelling, mass and lump, trunk
CPT/HCPCS: 71250

== ENCOUNTER 2024-07-16 13:39 | Emergency (ER) | payer MEDICARE ==
[2024-07-16 14:05] VITALS: RESP 18
--- NOTE | 2024-07-16 15:11 | ED ---
Back Pain HPI - General Chief Complaint: Back Pain/Injury Stated Complaint: Back pain Time Seen by Provider: 07/16/24 15:09 Source: patient, family, RN notes reviewed Limitations: physical limitation - History of Present Illness Initial Comments: 68-year-old female presenting for low back pain x 2 days. Describes constant pain in the lower back with radiation to both legs and worse with movement. Denies numbness, tingling, weakness, loss of bowel or bladder control, saddle anesthesia. States prior to symptom onset she has helped a friend move a mattress. - Related Data Home Medications Medication Instructions Recorded Confirmed Atorvastatin [Lipitor] 20 mg PO DAILY 10/11/18 04/21/23 Dicyclomine [Bentyl] 10 mg PO BID 10/11/18 04/21/23 Loratadine [Claritin] 10 mg PO DAILY 10/11/18 04/21/23 Montelukast Sodium [Singulair] 10 mg PO HS 10/11/18 04/21/23 ALPRAZolam [Xanax] 0.5 mg PO BID PRN 04/15/23 04/21/23 Levothyroxine Sodium 100 mcg PO DAILY 04/15/23 04/21/23 Valsartan 320 mg PO DAILY 04/15/23 04/21/23 Albuterol Inhaler [Ventolin Hfa 2 puff INHALATION Q4HR 04/21/23 04/21/23 Inhaler] Previous Rx's Medication Instructions Recorded Cyclobenzaprine [Flexeril] 10 mg PO TID PRN #15 tab 07/16/24 Lidocaine 4% Patch 1 patch TOPICAL DAILY PRN 7 Days 07/16/24 #7 patch Naproxen 500 mg PO Q12H PRN #30 tab 07/16/24 Allergies Allergy/AdvReac Type Severity Reaction Status Date / Time No Known Allergies Allergy Verified 07/16/24 14:00 Review of Systems ROS Statement: Those systems with pertinent positive or pertinent negative responses have been documented in the HPI. ROS Other: All systems not noted in ROS Statement are negative. Past Medical History Past Medical History: Asthma, COPD, Hyperlipidemia, Hypertension, Thyroid Disorder Additional Past Medical History / Comment(s): DIVERTICULITIS. chronic back pain History of Any Multi-Drug Resistant Organisms: None Reported Past Surgical History: Hysterectomy, Tonsillectomy Additional Past Surgical History / Comment(s): COLONOSCOPY Past Anesthesia/Blood Transfusion Reactions: No Reported Reaction Past Psychological History: Anxiety Smoking Status: Current every day smoker Past Alcohol Use History: Daily Past Drug Use History: None Reported - Past Family History Mother Family Medical History: Deep Vein Thrombosis (DVT) General Exam Limitations: physical limitation General appearance: alert, in no apparent distress Head exam: Present: atraumatic, normocephalic, normal inspection Eye exam: Present: normal appearance, PERRL, EOMI. Absent: scleral icterus, conjunctival injection, periorbital swelling GI/Abdominal exam: Present: soft, normal bowel sounds. Absent: distended, tenderness, guarding, rebound, rigid Back exam: Present: normal inspection, full ROM (Pain with range of motion), paraspinal tenderness (Bilateral paraspinal tenderness in lumbar portion of spine), other (Full strength and range of motion of bilateral hips, full sensation and DP pulses bilaterally. No saddle anesthesia.). Absent: CVA tenderness (R), CVA tenderness (L) Neurological exam: Present: alert, oriented X3 Psychiatric exam: Present: normal affect, normal mood Skin exam: Present: warm, dry, intact, normal color. Absent: rash Course Vital Signs 07/16/24 14:01 Temperature 98.1 F Pulse Rate 100 Respiratory 18 Rate Blood Pressure 130/84 O2 Sat by Pulse 97 Oximetry Medical Decision Making - Medical Decision Making Was pt. sent in by a medical professional or institution (Dr. PA, ELECT[employer], urgent care, hospital, or penitentiary...) When possible be specific @ -No Did you speak to anyone other than the patient for history (EMS, parent, family, police, friend...)? What history was obtained from this source @ -No Did you review nursing and triage notes (agree or disagree)? Why? @ -I reviewed and agree with nursing and triage notes Were old charts reviewed (outside hosp., previous admission, EMS record, old EKG, old radiological studies, urgent care reports/EKG's, penitentiary records)? Report findings @ -No old charts were reviewed Differential Diagnosis (chest pain, altered mental status, abdominal pain women, abdominal pain men, vaginal bleeding, weakness, fever, dyspnea, syncope, headache, dizziness, GI bleed, back pain, seizure, CVA, palpatations, mental health, musculoskeletal)? @ -Differential Back Pain: Strain, zoster, cauda equina syndrome, epidural abscess, vertebral osteomyelitis, discitis, fracture, subluxation, disc herniation, DJD, spinal stenosis, dissection, AAA, pancreatitis, peptic ulcer disease, pyelonephritis, kidney stone, this is not meant to be an all-inclusive list. EKG interpreted by me (3pts min.). @ -None X-rays interpreted by me (1pt min.). @ -X-ray lumbar spine reveals no acute fracture, there is mild multilevel disc degeneration CT interpreted by me (1pt min.). @ -None done U/S interpreted by me (1pt. min.). @ -None done What testing was considered but not performed or refused? (CT, X-rays, U/S, labs)? Why? @ -None What meds were considered but not given or refused? Why? @ -None Did you discuss the management of the patient with other professionals (professionals i.e. , PA, [employer], lab, RT, psych nurse, social work manager, water purifier, teacher, telecommunications officer, major case detective)? Give summary @ -No Was smoking cessation discussed for >3mins.? @ -No Was critical care preformed (if so, how long)? @ -No Were there social determinants of health that impacted care today? How? (Homelessness, low income, unemployed, alcoholism, drug addiction, transportation, low edu. Level, literacy, decrease access to med. care, halfway, rehab)? @ -No Was there de-escalation of care discussed even if they declined (Discuss DNR or withdrawal of care, Hospice)? DNR status @ -No What co-morbidities impacted this encounter? (DM, HTN, Smoking, COPD, CAD, Cancer, CVA, ARF, Chemo, Hep., AIDS, mental health diagnosis, sleep apnea, morbid obesity)? @ -None Was patient admitted / discharged? Hospital course, mention meds given and route, prescriptions, significant lab abnormalities, going to OR and other pertinent info. @ -Discharge. This is a 68-year-old female presenting with low back pain x 2 days. Symptoms occurred after patient helped move a mattress. No red flag symptoms. Neurovascularly intact. Provided with analgesics. X-ray lumbar spine reveals no acute fracture, there is mild multilevel disc degeneration. Discussed results with patient. Upon reevaluation, patient reports improvement of symptoms. She is able to ambulate. Appropriate return precautions and follow-up care discussed. Case was discussed with my ED attending Dr. Sanches Undiagnosed new problem with uncertain prognosis? @ -No Drug Therapy requiring intensive monitoring for toxicity (Heparin, Nitro, Insulin, Cardizem)? @ -No Were any procedures done? @ -No Diagnosis/symptom? @ -Low back strain Acute, or Chronic, or Acute on Chronic? @ -Acute Uncomplicated (without systemic symptoms) or Complicated (systemic symptoms)? @ -Uncomplicated Side effects of treatment? @ -No Exacerbation, Progression, or Severe Exacerbation? @ -No Poses a threat to life or bodily function? How? (Chest pain, [place], [place], pneumonia, PE, COPD, DKA, ARF, appy, cholecystitis, CVA, Diverticulitis, Homicidal, Suicidal, threat to staff... and all critical care pts) @ -No Disposition Clinical Impression: Low back strain Disposition: HOME SELF-CARE Condition: Stable Instructions (If sedation given, give patient instructions): Acute Low Back Pain (ED) Additional Instructions: Take naproxen, Robaxin, and lidocaine patches as needed for pain. Follow-up with orthopedics as discussed. Please return to the Emergency Department if symptoms worsen or any other concerns. Prescriptions: Cyclobenzaprine [Flexeril] 10 mg PO TID PRN #15 tab PRN Reason: Pain Lidocaine 4% Patch 1 patch TOPICAL DAILY PRN 7 Days #7 patch PRN Reason: Pain Naproxen 500 mg PO Q12H PRN #30 tab PRN Reason: Pain Is patient prescribed a controlled substance at d/c from ED?: No Referrals: Juaan Russell DO [Primary Care Provider] - 1-2 days Christo Sloan DO [Doctor of Osteopathic Medicine] - 1-2 days Time of Disposition: 16:59
[2024-07-16] MEDS: DEXAMETHASONE SOD PHOSPHATE 10 MG/ML 1 ML VIAL IM STA (15:33)
[2024-07-16] MEDS: ORPHENADRINE 30 MG/ML 2 ML VIAL IM STA (15:33)
[2024-07-16] MEDS: KETOROLAC 15 MG/ML 1 ML VIAL IM STA (15:33)
--- NOTE | 2024-07-16 16:20 | XR ---
EXAMINATION TYPE: XR lumbar spine 2 or 3V DATE OF EXAM: 07/16/2024 4:05 PM COMPARISON: None. CLINICAL INDICATION: Female, 68 years old with history of low back pain; [facility] TECHNIQUE: XR lumbar spine 2 or 3V - Frontal, lateral and coned in L5-S1 lateral views of the spine. FINDINGS: 5 lumbar type vertebral bodies are present for the purposes of this examination. No acute f racture or traumatic subluxation. Grade 1 anterolisthesis of L4 and L5. Grade 1 retrolisthesis of L3 on L4 and L2 on L3. Multilevel intervertebral disc space loss and anterior osteophyte formation. Mult ilevel facet arthropathy, L4-5 and L5-S1. Calcified atherosclerotic disease of the abdominal aorta. IMPRESSION: 1. No acute fracture. 2. Mild multilevel disc degeneration. [facility], , 07/16/2024 4:18 PM
[2024-07-16] MEDS: LIDOCAINE 4% PATCH TOPICAL ONE (16:53)
[2024-07-16 17:17] VITALS: BP 156/92; PULSE 74; TEMP 98.3
== END 2024-07-16 17:17 | disposition home or self-care (01) ==
LOC: EC 13:39
DX: S39.012A Strain of muscle, fascia and tendon of lower back, initial encounter (principal); M51.369 Other intervertebral disc degeneration, lumbar region without mention of lumbar back pain or lower extremity pain; F17.200 Nicotine dependence, unspecified, uncomplicated; X58.XXXA Exposure to other specified factors, initial encounter
CPT/HCPCS: 72100; 99283; 96372; J1100; J2360; J1885

== ENCOUNTER → 2024-08-04 | Outpatient (CLI) | payer MEDICARE ==
--- NOTE | 2024-08-04 12:19 | MM ---
Reason for Exam: Screening (asymptomatic). Last mammogram was performed 1 year(s) and 5 month(s) ago. Patient History: Menarche at age 11. First Full-Term at age 27. Hysterectomy at age 40. Postmenopausal. Patient used Hormonal Contraceptives for 30 years. Mother had breast cancer, age 55. Risk Values: Tere 5 year model risk: 3.4%. NCI Lifetime model risk: 10.2%. Prior Study Comparison: 05/07/2020 Bilateral Screening Mammogram, [facility]. 07/05/2021 Bilateral Screening Mammogram, [facility]. 03/04/2023 Bilateral MG 3D screening mammo w/cad, [facility]. Tissue Density: The breasts are heterogeneously dense, which may obscure small masses. Findings: Analyzed By CAD. Elongated asymmetric density central outer left CC view middle depth is unchanged from 2022. There is no suspicious group of microcalcifications or new suspicious mass in either breast. Overall Assessment: Benign, BI-RAD 2 Management: Screening Mammogram of both breasts in 1 year. See note below in regards to patient's increased 5 year Tere score. Patient should continue monthly self-breast exams. A clinical breast exam by your physician is recommended on an annual basis. This exam should not preclude additional follow-up of suspicious palpable abnormalities. Note on Tere scores and lifetime risk: 1. A Tere score greater than 3% is considered moderate risk. If this is the case, consider specialist referral to assess eligibility for a risk reducing agent. 2. If overall lifetime risk for the development of breast cancer is 20% or higher, the patient may qualify for future screening with alternating mammogram and breast MRI. [facility], , 08/04/2024 12:16 PM. Electronically signed and approved by: Judit Stout M.D. Radiologist
--- NOTE | 2024-08-04 12:23 | CTL ---
EXAMINATION TYPE: CT Low Dose Lung DATE OF EXAM ORDERED: 08/04/2024 COMPARISON: Prior chest CT July 02, 2023 and older studies. CLINICAL INDICATION: Female, 68 years old with history of Z12.2 SCREENING F17.210 Nicotine dependence ; PHH, Personal hx nicotine dependence, current smoker, 1 ppd x 54 years hx COPD, Lung cancer screeni ng, History of Smoking/tobacco use. TECHNIQUE: Low dose computed tomography scan was performed through the chest at 1 mm thick sections a nd reconstructed images in multiple planes at 1 mm and [address] DLP: 89.[address] CTDI: 2.5 mGy Automated exposure control for dose reduction was used. CT DIAGNOSTIC QUALITY: Satisfactory FINDINGS: Nodules: Scattered small nodules are redemonstrated. No new or enlarging greater than 6 mm pulmonary nodules RUL: Stable 3 mm peripheral right upper lobe nodule (image 75 for reference. Stable 6 mm nodule or n odular scarring axial image 121. RML: None. RLL: None. KELSI: None. LLL: None. LUNGS: COPD: Severity: Moderate Fibrosis: Severity: None Lymph nodes: None Other findings: New focal consolidation/atelectasis in the lingula on axial image 218 inferior to latoya ear scarring and/or atelectasis. RIGHT PLEURAL SPACE: Effusion: None Calcification: None Thickening: None Pneumothorax: None LEFT PLEURAL SPACE: Effusion: None Calcification: None Thickening: None Pneumothorax: None HEART: Heart Size: Normal Coronary Calcification: Moderate Pericardial Effusion: None OTHER FINDINGS: Upper abdomen: None Bony thorax: None Supraclavicular region: None Other: None IMPRESSION: Stable findings. No new or enlarging greater than [address] LUNG RAD AND CT CHEST RECOMMENDATION: Lung-Rad 2 Benign Appearance or Behavior: Continue annual sc reening with LDCT in 12 months. S Modifier (other clinically significant findings): None [facility], , 08/04/2024 12:20 PM
== END | disposition home or self-care (01) ==
LOC: RADMAMWWP 11:37
PROVIDERS: ATTEND Family Medicine
DX: Z12.31 Encounter for screening mammogram for malignant neoplasm of breast (principal); Z12.2 Encounter for screening for malignant neoplasm of respiratory organs; F17.210 Nicotine dependence, cigarettes, uncomplicated; J44.9 Chronic obstructive pulmonary disease, unspecified; Z78.0 Asymptomatic menopausal state; Z80.3 Family history of malignant neoplasm of breast; R92.333 Mammographic heterogeneous density, bilateral breasts
CPT/HCPCS: 71271; 77063; 77067